=== PATIENT | female | born 1990 | race Asian ===

== ENCOUNTER 2017-06-10 20:21 | Inpatient (IN) | payer OTHER ==
[2017-06-10] MEDS ORDERED: LACTATED RINGER'S 500 ML IV (21:34)
[2017-06-10] MEDS ORDERED: BUTORPHANOL 2 MG INJ IV ×2 (22:00)
[2017-06-10] MEDS ORDERED: LIDOCAINE 1% (MPF) 30 ML INJ INJ (22:00)
[2017-06-10] MEDS ORDERED: METHYLERGONOVINE 0.2 MG INJ IM (22:00)
[2017-06-10] MEDS: LACTATED RINGER'S 1,000 ML IV ×2 (22:00→23:28)
[2017-06-10] MEDS ORDERED: CARBOPROST 250 MCG INJ IM (22:00)
[2017-06-10] MEDS ORDERED: HYDROCODONE/APAP (5/325) TAB PO (22:00)
[2017-06-10] MEDS ORDERED: OXYTOCIN 30 UNITS/LR 500 ML IV ×3 (22:00→23:30)
[2017-06-10] MEDS ORDERED: IBUPROFEN 600 MG TAB PO (22:00)
[2017-06-10] MEDS ORDERED: MISOPROSTOL 200 MCG TAB PR (22:00)
[2017-06-10 22:13] LABS: ADD MAN DIFF? NO
[2017-06-10 22:20] LABS: WHITE BLOOD COUNT 12.9 10^3/ul (4.8-10.8)
[2017-06-10 22:20] LABS: BASOPHILS % 0.3 % (0.0-2.0); EOSINOPHILS # 0.1 10^3/ul (0.0-0.5); EOSINOPHILS % 1.1 % (0.0-7.0); HEMATOCRIT 35.8 % (37.0-47.0); HEMOGLOBIN 11.8 g/dl (12.0-16.0); LYMPHOCYTES # 2.2 10^3/ul (0.8-2.9); LYMPHOCYTES % 16.7 % (15.0-51.0); MEAN CORPUSCULAR HEMOGLOBIN 26.1 pg (29.0-33.0); MEAN CORPUSCULAR VOLUME 79.2 fl (82.0-101.0); MONOCYTE # 0.9 10^3/ul (0.3-0.9); MONOCYTES % 6.7 % (0.0-11.0); NEUTROPHIL # 9.6 10^3/ul (1.6-7.5); NEUTROPHILS % 74.5 % (39.0-77.0); PLATELET COUNT 202 10^3/UL (140-415); RED BLOOD COUNT 4.52 10^6/ul (4.20-5.40); RED CELL DISTRIBUTION WIDTH 13.6 % (11.5-14.5)
[2017-06-10 22:34] LABS: INR 0.88; PT RATIO 0.9
[2017-06-10 22:35] LABS: PARTIAL THROMBOPLASTIN TIME 28.1 Sec (25.0-35.0)
[2017-06-10 22:45] LABS: ALANINE AMINOTRANSFERASE 19 IU/L (13-69); ALBUMIN 3.7 g/dl (3.3-4.9); ALBUMIN/GLOBULIN RATIO 1.05; ALKALINE PHOSPHATASE 149 IU/L (42-121); ANION GAP 14 (8-16); ASPARTATE AMINO TRANSFERASE 19 IU/L (15-46); BILIRUBIN,INDIRECT 0.6 mg/dl (0-1.1); BILIRUBIN,TOTAL 0.6 mg/dl (0.2-1.3); BLOOD UREA NITROGEN 3 mg/dl (7-20); CALCIUM 9.5 mg/dl (8.4-10.2); CARBON DIOXIDE 22 mmol/L (21-31); CHLORIDE 105 mmol/L (97-110); CREATININE 0.36 mg/dl (0.44-1.00); GLUCOSE 88 mg/dl (70-220); POTASSIUM 3.6 mmol/L (3.5-5.1); SODIUM 137 mmol/L (135-144); TOTAL PROTEIN 7.2 g/dl (6.1-8.1)
[2017-06-10] MEDS ORDERED: LACTATED RINGER'S 1,000 ML IV (23:21)
[2017-06-10 23:26] LABS: HEPATITIS B SURFACE ANTIGEN NEGATIVE (NEGATIVE)
[2017-06-10] MEDS ORDERED: FENTAnyl 2MCG/ML-ROPIV 0.2% 100 ML (23:48)
[2017-06-11] MEDS: AMPICILLIN 2 GM/NS (PMX) 100 ML IV (00:13)
[2017-06-11] MEDS: LACTATED RINGER'S 1,000 ML IV (02:26)
[2017-06-11] MEDS: AMPICILLIN 1 GM/NS (PMX) 50 ML IV (03:32)
[2017-06-11] MEDS: OXYTOCIN 30 UNITS/LR 500 ML IV ×3 (04:09→07:30)
[2017-06-11] MEDS: LACTATED RINGER'S 1,000 ML IV* ×3 (04:27→20:27)
[2017-06-11] MEDS ORDERED: METHYLERGONOVINE 0.2 MG INJ IM (04:30)
[2017-06-11] MEDS ORDERED: CARBOPROST 250 MCG INJ IM (04:30)
[2017-06-11] MEDS ORDERED: MISOPROSTOL 200 MCG TAB PR (04:30)
[2017-06-11] MEDS ORDERED: OXYTOCIN 30 UNITS/LR 500 ML IV ×2 (04:30→04:35)
[2017-06-11] MEDS ORDERED: OXYCODONE/ASPIRIN (4.88/325) TAB PO (04:30)
[2017-06-11] MEDS: IBUPROFEN 600 MG TAB PO ×4 (07:52→23:36)
[2017-06-11] MEDS: BENZOCAINE 20% 56 ML SPRAY TOP (08:38)
[2017-06-11] MEDS: LANOLIN 7 GM TUBE TOP (08:39)
[2017-06-11 20:09] LABS: RAPID PLASMA REAGIN NONREACTIVE (NR)
[2017-06-12] MEDS: LACTATED RINGER'S 1,000 ML IV* ×3 (04:27→20:27)
[2017-06-12] MEDS: IBUPROFEN 600 MG TAB PO ×4 (06:00→23:54)
[2017-06-12 08:50] LABS: ADD MAN DIFF? NO
[2017-06-12 08:54] LABS: BASOPHIL # 0.1 10^3/ul (0.0-0.1); BASOPHILS % 0.7 % (0.0-2.0); EOSINOPHILS # 0.4 10^3/ul (0.0-0.5); EOSINOPHILS % 3.6 % (0.0-7.0); HEMOGLOBIN 11.5 g/dl (12.0-16.0); LYMPHOCYTES # 2.3 10^3/ul (0.8-2.9); LYMPHOCYTES % 19.3 % (15.0-51.0); MEAN CORPUSCULAR HEMOGLOBIN 26.3 pg (29.0-33.0); MEAN CORPUSCULAR HGB CONC 31.9 g/dl (32.0-37.0); MEAN CORPUSCULAR VOLUME 82.4 fl (82.0-101.0); MEAN PLATELET VOLUME 9.9 fl (7.4-10.4); MONOCYTE # 0.7 10^3/ul (0.3-0.9); MONOCYTES % 6.3 % (0.0-11.0); NEUTROPHIL # 8.2 10^3/ul (1.6-7.5); NEUTROPHILS % 69.4 % (39.0-77.0); PLATELET COUNT 187 10^3/UL (140-415); RED BLOOD COUNT 4.37 10^6/ul (4.20-5.40); RED CELL DISTRIBUTION WIDTH 13.8 % (11.5-14.5)
[2017-06-12 08:54] LABS: WHITE BLOOD COUNT 11.8 10^3/ul (4.8-10.8)
[2017-06-12] MEDS: LANOLIN 7 GM TUBE TOP (23:16)
[2017-06-13] MEDS: IBUPROFEN 600 MG TAB PO (05:52)
[2017-06-13] MEDS: DIPHTH/TET/ACEL PERTUSS (ADULT) 0.5 ML VIAL IM* (09:00)
[2017-06-14 11:13] LABS: RUBELLA ANTIBODY - IGM <20.00 AU/mL
== END 2017-06-13 15:19 | disposition home or self-care (01) | DRG 775 ==
LOC: OBT 20:21 → PP1 06-11 06:31 → L-D 20:23 → OBT 21:17 → L-D 21:17
PROC: 10E0XZZ Delivery of Products of Conception, External Approach (ICD-10-PCS; principal; 2017-06-11)
PROC: 0HQ9XZZ Repair Perineum Skin, External Approach (ICD-10-PCS; 2017-06-11)
DX: O48.0 Post-term pregnancy (principal); O99.824 Streptococcus B carrier state complicating childbirth; Z37.0 Single live birth; O70.0 First degree perineal laceration during delivery; Z3A.40 40 weeks gestation of pregnancy
CPT/HCPCS: 36415; 62319; 80053; 85025; 85610; 85730; 86592; 86762; 86900; 86901; 87340; 90715; 99464